=== PATIENT | female | born 1965 | race Caucasian/White ===

== ENCOUNTER → 2017-07-18 | Outpatient (CLI) | payer OTHER | LOC: MAMMO 08:21 | PROVIDERS: ATTEND Family Medicine | DX: Z12.31 Encounter for screening mammogram for malignant neoplasm of breast (principal) ==

== ENCOUNTER → 2018-08-29 | Outpatient (CLI) | payer OTHER ==
--- NOTE | 2018-08-29 20:37 | MAM ---
EXAM DESCRIPTION: 3D Screening BILATERAL : Digital Mammography. CLINICAL HISTORY: 53 years Female SCREENING . No complaints or personal history of breast cancer. Remote family history of breast and ovarian cancer. Childbirth. Postmenopausal one year. No HRT. Prior left cyst aspiration and biopsy.. Lifetime risk of developing breast cancer (Tyrer-Cuzick model)(%): 13.1. COMPARISON: 2-D digital screening bilateral mammography 08/29/2018 TECHNIQUE: Bilateral CC and MLO projection full-field images, with [employer] digital tomosynthesis mammographic technique. Bilateral digital 2-D full-field MLO images. CAD not available for tomosynthesis or 2-D images. FINDINGS: The breast parenchymal density pattern is: Scattered areas of fibroglandular density. No skin thickening or nipple retraction. Bilateral solitary microcalcifications. No new focal, stellate mass or density, focal asymmetry , and no suspicious microcalcifications bilaterally. Stable mammograms compared to prior study. Taking into account, differences in mammographic technique. IMPRESSION: Benign exam. BIRAD CATEGORY: 2 BENIGN FINDINGS. RECOMMENDATIONS: FOLLOW UP: Routine digital bilateral mammographic screening, one year interval from August 2018. Written communication explaining the IMPRESSION and follow-up, will be mailed to the patient and referring health care provider. According to the [employer], yearly mammograms are recommended starting at age 40 and continuing as long as a woman is in good health. Any breast change noted on a breast self-exam should be reported promptly to the patient's healthcare provider. Breast MRI is recommended for women with an approximately 20-25% or greater lifetime risk of breast cancer, including women with a strong family history of breast or ovarian cancer and women who have been treated for Hodgkin's disease. A negative mammographic report should not delay tissue diagnosis in patients with significant clinical history or physical findings. Extremely dense breast tissue limits the sensitivity of digital mammography. Electronically signed by: Angel Cano MD 08/29/2018 8:35 PM COUNTERINTELLIGENCE ANALYST
== END ==
LOC: MAMMO 08:00
PROVIDERS: ATTEND Family Medicine
DX: Z12.31 Encounter for screening mammogram for malignant neoplasm of breast (principal)

== ENCOUNTER → 2018-12-26 | Outpatient (CLI) | payer OTHER ==
--- NOTE | 2018-12-27 07:49 | RAD ---
EXAM: Pelvis and hip CLINICAL HISTORY: Pain COMPARISON STUDY: None TECHNICAL: AP pelvis FINDINGS: The pelvic ring is intact and negative. Both hips are in anatomic alignment. There is no identifiable fracture. There is no osseous abnormality. There are mild degenerative changes of the sacroiliac joints. IMPRESSION: 1. Mild degenerative changes of both sacroiliac joints. 2. No fracture or dislocation. Electronically signed by: Giovanny Villasenor MD 12/27/2018 7:46 AM CDT
--- NOTE | 2018-12-27 07:50 | RAD ---
EXAM: Knee,Left Complete CLINICAL HISTORY: M25.562, M25.552 COMPARISON STUDY: None. TECHNICAL: 4 views of the knee. FINDINGS: Views of the knee demonstrate no fracture or dislocation. There is no acute bone abnormality. There is no visible effusion. There is mild medial joint space loss. There are mild periarticular degenerative changes of the medial compartment. IMPRESSION: Mild osteoarthritic changes of the medial compartment. Electronically signed by: Giovanny Villasenor MD 12/27/2018 7:47 AM CDT
== END ==
LOC: RAD 09:13
PROVIDERS: ATTEND Orthopaedic Surgery
DX: M17.12 Unilateral primary osteoarthritis, left knee (principal); M46.98 Unspecified inflammatory spondylopathy, sacral and sacrococcygeal region

== ENCOUNTER → 2019-10-07 | Outpatient (CLI) | payer BC | LOC: GMAJ 10:23 | PROVIDERS: ATTEND Family Medicine | DX: E03.8 Other specified hypothyroidism (principal) ==

== ENCOUNTER → 2019-10-09 | Outpatient (CLI) | payer BC ==
--- NOTE | 2019-10-10 16:12 | MAM ---
EXAM DESCRIPTION: 3D Screening BILATERAL : Digital Mammography. CLINICAL HISTORY: 54 years Female ANNUAL SCREENING . No complaints or personal history of breast cancer. Remote family history of breast cancer. Menarche age 13. Childbirth age 24. Menopause age 52. No HRT. Benign left breast biopsy. Lifetime risk of developing breast cancer (Tyrer-Cuzick model)(%): 9.5 COMPARISON: Bilateral screening digital breast tomosynthesis August 2018 and 2-D digital screening mammogram July 2017. TECHNIQUE: Bilateral CC and MLO projection full-field images, digital tomosynthesis mammographic technique. Bilateral digital 2-D full-field MLO images. CAD available for 2-D images. FINDINGS: The breast parenchymal density pattern is: Scattered areas of fibroglandular density. No skin thickening or nipple retraction. Solitary microcalcifications. Right intramammary lymph node axillary tail. Skin mole marker right breast No new focal, stellate mass or density, focal asymmetry , and no suspicious microcalcifications bilaterally. Stable mammograms compared to prior study. IMPRESSION: Benign exam. BIRAD CATEGORY: 2 BENIGN FINDINGS. RECOMMENDATIONS: FOLLOW UP: Routine digital bilateral mammographic screening, one year interval from September 2019 Written communication explaining the IMPRESSION and follow-up, will be mailed to the patient and referring health care provider. According to the [employer], yearly mammograms are recommended starting at age 40 and continuing as long as a woman is in good health. Any breast change noted on a breast self-exam should be reported promptly to the patient's healthcare provider. Breast MRI is recommended for women with an approximately 20-25% or greater lifetime risk of breast cancer, including women with a strong family history of breast or ovarian cancer and women who have been treated for Hodgkin's disease. A negative mammographic report should not delay tissue diagnosis in patients with significant clinical history or physical findings. Extremely dense breast tissue limits the sensitivity of digital mammography. Electronically signed by: Angel Cano MD 10/10/2019 4:11 PM INSURANCE REPRESENTATIVE
== END ==
LOC: MAMMO 09:00
PROVIDERS: ATTEND Family Medicine
DX: Z12.31 Encounter for screening mammogram for malignant neoplasm of breast (principal)

== ENCOUNTER → 2020-06-15 | Outpatient (CLI) | payer BC | LOC: GMAJ 14:15 | PROVIDERS: ATTEND Family Medicine | DX: E03.9 Hypothyroidism, unspecified (principal); I10 Essential (primary) hypertension ==